=== PATIENT | female | born 1995 | race Hispanic/Latino ===

== ENCOUNTER 2024-10-03 18:37 | Emergency (ER) | payer SELFPAY ==
[2024-10-03] MEDS ORDERED: NA CHLORIDE 0.9% 2,000 ML ONE (19:19)
[2024-10-03] MEDS ORDERED: METOCLOPRAMIDE 10 MG/2mL INJ ONE (19:19)
[2024-10-03] MEDS ORDERED: DIPHENHYDRAMINE 50 MG/ML VIAL ONE (19:19)
[2024-10-03 19:45] LABS: Absolute Eosinophils 0.2 K/uL (0-0.5); Absolute Lymphocytes (CBC) 1.9 K/uL (0.7-4.9); Absolute Monocytes 0.4 K/uL (0.1-1.3); Absolute Neutrophil 5.7 K/uL (1.8-8.0); Basophils % 0.4 % (0-1.3); Eosinophils % 2.2 % (0-4.4); Hematocrit 37.7 % (36.0-45.0); Hemoglobin 12.6 g/dL (12.0-15.0); Lymphocytes % 23.5 % (15.3-44.8); MCH 29.3 pg (27.0-35.0); MCHC 33.3 g/dL (32.0-36.0); MCV 87.9 fL (80-100); MPV 8.5 fL (7.6-11.3); Monocytes % 4.5 % (3.3-12.3); Neutrophils % 69.4 % (41.7-73.7); Platelets 217 thou/uL (152-406); RBC Red Blood Cell Count 4.28 M/uL (3.86-4.86); Red Cell Distribution Width 13.6 % (12.1-15.2)
[2024-10-03 20:02] LABS: ALT/SGPT 30 U/L (13-56); Albumin 3.2 g/dL (3.4-5.0); Albumin/Globulin Ratio 0.8 (1.1-1.8); Alkaline Phosphatase 60 U/L (45-117); Anion Gap 9.8 mEq/L (5.0-15.0); BUN Blood Urea Nitrogen 12 mg/dL (7-18); Bicarbonate 24 mEq/L (21-32); Bilirubin Total 0.3 mg/dL (0.2-1.0); Globulin 3.9 g/dL (2.3-3.5); Glomerular Filtration Rate 130 ml/min (=/>90); Glucose Level 87 mg/dL (74-106); Lipase 45 U/L (13-75); Potassium 3.8 mEq/L (3.5-5.1); Protein, Total 7.1 g/dL (6.4-8.2); Sodium Level 139 mEq/L (136-145)
[2024-10-03 20:03] LABS: AST/SGOT < 10 U/L (15-37)
[2024-10-03 20:53] LABS: Specific Gravity 1.028 (1.005-1.030); Sqamous Epithelial <5 /HPF (None Seen); Urine Bacteria <20 /HPF (<20); Urine Bilirubin NEGATIVE (Negative); Urine Blood Negative (Negative); Urine Clarity Turbid (Clear); Urine Color Light-Yellow (Yellow); Urine Culture Reflex Order NOT NEEDED; Urine Glucose NEGATIVE (Negative); Urine Ketones 1+ (Negative); Urine Microscopic Reflex YN ORDER UMIC; Urine Mucus Slight /HPF (None Seen); Urine Nitrite NEGATIVE (Negative); Urine Protein NEGATIVE (Negative); Urine RBC <5 /HPF (None Seen); Urine Urobilinogen Normal (Normal); Urine WBC <5 /HPF (<5); Urine pH 5.5 (5.0-7.0)
[2024-10-03 21:29] LABS: Specific Gravity 1.028 (1.005-1.030)
--- NOTE | 2024-10-03 21:45 | ER ---
Nurse's Notes [facility] Name: Silvia Peterson Age: 29 yrs Sex: Female : 1995 Arrival Date: 10/03/2024 Time: 18:37 Bed 7 Private MD: Diagnosis: Nausea with vomiting, unspecified;First trimester Presentation: 10/03 18:52 Chief complaint: Patient states: HEADACHE, NAUSEA, DIZZINESS, VOMITING SINCE YESTERDAY. db TAKING MONJARO X 2 WEEKS, INCREASED DOSE AND LAST TOOK FRIDAY. Coronavirus screen: Client denies travel out of the [place] in the last 14 days. At this time, the client does not indicate any symptoms associated with coronavirus-19. Ebola Screen: Patient negative for fever greater than or equal to 101.5 degrees Fahrenheit, and additional compatible Ebola Virus Disease symptoms Patient denies exposure to infectious person. Patient denies travel to an Ebola-affected area in the 21 days before illness onset. No symptoms or risks identified at this time. Initial Sepsis Screen: Does the patient meet any 2 criteria? No. Patient's initial sepsis screen is negative. Does the patient have a suspected source of infection? No. Patient's initial sepsis screen is negative. Risk Assessment: Do you want to hurt yourself or someone else? Patient reports no desire to harm self or others. Onset of symptoms was October 03, 2024. 18:52 Method Of Arrival: Ambulatory db 18:52 Acuity: ANALIA 3 db Triage Assessment: 18:55 Headache History: Denies prior headaches. General: Appears in no apparent distress. db uncomfortable, Behavior is calm, cooperative. Pain: Complains of pain in head. Pain: Complains of pain in head and abdomen Pain currently is 8 out of 10 on a pain scale. Pain began 2-3 days ago. Also complains of nausea. Neuro: Level of Consciousness is awake, alert, obeys commands, Oriented to person, place, time, situation. Neuro: Reports dizziness, headache. Respiratory: Airway is patent Respiratory effort is even, unlabored, Respiratory pattern is regular, symmetrical. GI: Reports diarrhea, nausea, vomiting. Historical: - Allergies: 18:54 No Known Allergies; db - Home Meds: 18:54 None [Active]; db - PMHx: 18:54 Asthma; db - PSHx: 18:54 section; db 18:55 GASTRIC BYPASS; db - Immunization history:: Adult Immunizations unknown. - Infectious Disease History:: Denies. - Social history:: Smoking status: Patient denies any tobacco usage or history of. Screenin:15 [facility] ED Fall Risk Assessment (Adult) History of falling in the last 3 months, br2 including since admission No falls in past 3 months (0 pts) Confusion or Disorientation No (0 pts) Intoxicated or Sedated No (0 pts) Impaired Gait No (0 pts) Mobility Assist Device Used No (0 pt) Altered Elimination No (0 pt) Score/Fall Risk Level 0 - 2 = Low Risk Oriented to surroundings. Abuse screen: Denies threats or abuse. Denies injuries from another. Nutritional screening: No deficits noted. Tuberculosis screening: No symptoms or risk factors identified. Assessment: 19:15 Reassessment: Patient and/or family updated on plan of care and expected duration. Pain br2 level reassessed. Patient is alert, oriented x 3, equal unlabored respirations, skin warm/dry/pink. General: Appears uncomfortable, Behavior is calm, cooperative. Pain: Complains of pain in epigastric area Pain currently is 7 out of 10 on a pain scale. GI: Abdomen is round Reports upper abdominal pain, nausea, vomiting, since YESTERDAYMORNING. 20:48 Reassessment: Patient and/or family updated on plan of care and expected duration. Pain br2 level reassessed. Patient is alert, oriented x 3, equal unlabored respirations, skin warm/dry/pink. Patient states feeling better. Patient states symptoms have improved. 21:30 Reassessment: Patient and/or family updated on plan of care and expected duration. Pain br2 level reassessed. Patient is alert, oriented x 3, equal unlabored respirations, skin warm/dry/pink. Patient states feeling better. Patient states symptoms have improved. Vital Signs: 18:52 BP 141 / 92; Pulse 102; Resp 18; Temp 98.6; Pulse Ox 100% ; Weight 111.58 kg; Height 5 db ft. 4 in. ; 20:15 BP 133 / 86; Pulse 75; Resp 18 S; Pulse Ox 100% on R/A; br2 20:47 BP 131 / 76; Pulse 69; Resp 18; Pulse Ox 100% ; Pain 0/10; br2 18:52 Body Mass Index 42.23 (111.58 kg, 162.56 cm) db 20:47 Pain Scale: Adult br2 ED Course: 18:40 Patient arrived in ED. im 18:54 Triage completed. db 18:56 Andrey Soto MD is Attending Physician. rt 18:57 Arm band placed on right wrist. db 19:11 Georgina Haji, RN is Primary Nurse. br2 19:15 Patient has correct armband on for positive identification. Placed in gown. Bed in low br2 position. Call light in reach. Side rails up X 1. Provided Education on: PLAN OF CARE. 19:15 Inserted saline lock: 20 gauge in right antecubital area, using aseptic technique. br2 Blood collected. Flushed with 10 mL NS. 19:43 CBC with Diff Sent. br2 19:43 CMP Sent. br2 19:43 Lipase Sent. br2 22:01 IV discontinued, intact, bleeding controlled, No redness/swelling at site. Pressure br2 dressing applied. Administered Medications: 19:42 Drug: NS 0.9% IV 1000 ml IV at 1 bolus Per protocol; to be given as a bolus over 60 br2 minutes Route: IV; Rate: 1 bolus; Site: right antecubital; 20:46 Follow up: Response: No adverse reaction; IV Status: Completed infusion; IV Intake: br2 1000ml 19:43 Drug: metoCLOPramide IVP 10 mg IVP once; over 1 to 2 minutes Route: IVP; Site: right br2 antecubital; 20:46 Follow up: Response: No adverse reaction br2 19:43 Drug: diphenhydrAMINE IVP 25 mg IVP once Route: IVP; Site: right antecubital; br2 20:46 Follow up: Response: No adverse reaction br2 20:46 Drug: NS 0.9% IV 1000 ml IV at 1 bolus Per protocol; to be given as a bolus over 60 br2 minutes Route: IV; Rate: 1 bolus; Site: right antecubital; 21:45 Follow up: Response: No adverse reaction; IV Status: Completed infusion; IV Intake: br2 1000ml Medication: 19:15 VIS not applicable for this client. br2 Intake: 20:46 IV: 1000ml; Total: 1000ml. br2 21:45 IV: 1000ml; Total: 2000ml. br2 Outcome: 21:44 Discharge ordered by . rt 22:01 Discharged to home ambulatory, br2 22:01 Condition: good 22:01 Discharge instructions given to patient, Instructed on discharge instructions, follow up and referral plans. Demonstrated understanding of instructions, follow-up care, medications, Prescriptions given X 1, 22:02 Patient left the ED. br2 Signatures: Paulette Victor RN RN db Andrey Soto MD MD rt Feli Strange Belinda, RN RN br2 Corrections: (The following items were deleted from the chart) 20:48 20:47 BP 131 / 76; Pulse 69bpm; Resp 18bpm; Pulse Ox 100%; br2 br2
--- NOTE | 2024-10-03 21:45 | EDPHYS ---
Physician Documentation [facility] Name: Silvia Peterson Age: 29 yrs Sex: Female : 1995 Arrival Date: 10/03/2024 Time: 18:37 Bed 7 Private MD: ED Physician Andrey Soto HPI: 10/03 19:22 This 29 yrs old Female presents to ER via Ambulatory with complaints of Headache, rt Nausea, Dizziness, Vomiting. 19:22 Patient presents to the ED with 1 day of nausea, vomiting, diarrhea after having her rt dose of Mounjaro double. Denies abdominal pain. Denies other reports mild headache but denies other acute complaints, symptoms are moderate in severity, no other aggravating or alleviating factors.. Historical: - Allergies: 18:54 No Known Allergies; db - Home Meds: 18:54 None [Active]; db - PMHx: 18:54 Asthma; db - PSHx: 18:54 section; db 18:55 GASTRIC BYPASS; db - Immunization history:: Adult Immunizations unknown. - Infectious Disease History:: Denies. - Social history:: Smoking status: Patient denies any tobacco usage or history of. ROS: 19:22 Constitutional: Negative for fever, chills, and weight loss, Cardiovascular: Negative rt for chest pain, palpitations, and edema, Respiratory: Negative for shortness of breath, cough, wheezing, and pleuritic chest pain, MS/Extremity: Negative for injury and deformity, Skin: Negative for injury, rash, and discoloration, 19:22 Abdomen/GI: Positive for nausea, vomiting, and diarrhea, 19:22 Neuro: Positive for headache, Negative for loss of consciousness, Exam: 19:22 Constitutional: This is a well developed, well nourished patient who is awake, alert, rt and in no acute distress. Head/Face: Normocephalic, atraumatic. Chest/axilla: Normal chest wall appearance and motion. Nontender with no deformity. No lesions are appreciated. Cardiovascular: Regular rate and rhythm with a normal S1 and S2. No gallops, murmurs, or rubs. Normal PMI, no JVD. No pulse deficits. Respiratory: Lungs have equal breath sounds bilaterally, clear to auscultation and percussion. No rales, rhonchi or wheezes noted. No increased work of breathing, no retractions or nasal flaring. Abdomen/GI: Soft, non-tender, with normal bowel sounds. No distension or tympany. No guarding or rebound. No evidence of tenderness throughout. Skin: Warm, dry with normal turgor. Normal color with no rashes, no lesions, and no evidence of cellulitis. MS/ Extremity: Pulses equal, no cyanosis. Neurovascular intact. Full, normal range of motion. Neuro: Awake and alert, GCS 15, oriented to person, place, time, and situation. Cranial nerves II-XII grossly intact. Motor strength 5/5 in all extremities. Sensory grossly intact. Cerebellar exam normal. Normal gait. Vital Signs: 18:52 BP 141 / 92; Pulse 102; Resp 18; Temp 98.6; Pulse Ox 100% ; Weight 111.58 kg; Height 5 db ft. 4 in. ; 20:15 BP 133 / 86; Pulse 75; Resp 18 S; Pulse Ox 100% on R/A; br2 20:47 BP 131 / 76; Pulse 69; Resp 18; Pulse Ox 100% ; Pain 0/10; br2 18:52 Body Mass Index 42.23 (111.58 kg, 162.56 cm) db 20:47 Pain Scale: Adult br2 MDM: 19:02 Medical Screening Exam initiated rt 22:55 Differential diagnosis: Pancreatitis, electrolyte disturbance, TESSA, , rt hyperemesis gravidarum. Data reviewed: vital signs, nurses notes, lab test result(s). I considered the following discharge prescriptions or medication management in the emergency department Medications were administered in the Emergency Department. See MAR. Test considered but Not performed: CT: Benign abdominal examination, positive test, do not believe that risks of radiation are indicated given stable labs, low suspicion for acute surgical pathology such as appendicitis, cholecystitis, bowel obstruction. Care significantly affected by the following chronic conditions: Asthma. Counseling: I had a detailed discussion with the patient and/or guardian regarding the historical points, exam findings, and any diagnostic results supporting the discharge/admit diagnosis, lab results, the need for outpatient follow up, to return to the emergency department if symptoms worsen or persist or if there are any questions or concerns that arise at home. Response to treatment: the patient's symptoms have markedly improved after treatment. 10/03 19:03 Order name: CBC with Diff; Complete Time: 21:27 rt 10/03 19:03 Order name: CMP; Complete Time: 21:27 rt 10/03 19:03 Order name: Lipase; Complete Time: 21:27 rt 10/03 19:03 Order name: Test, Urine; Complete Time: 21:33 rt 10/03 19:03 Order name: Urinalysis w/ reflexes; Complete Time: 21:27 rt 10/03 19:03 Order name: IV Saline Lock; Complete Time: :43 rt 10/03 19:03 Order name: Labs collected and sent; Complete Time: 19:43 rt Administered Medications: 19:42 Drug: NS 0.9% IV 1000 ml IV at 1 bolus Per protocol; to be given as a bolus over 60 br2 minutes Route: IV; Rate: 1 bolus; Site: right antecubital; 20:46 Follow up: Response: No adverse reaction; IV Status: Completed infusion; IV Intake: br2 1000ml 19:43 Drug: metoCLOPramide IVP 10 mg IVP once; over 1 to 2 minutes Route: IVP; Site: right br2 antecubital; 20:46 Follow up: Response: No adverse reaction br2 19:43 Drug: diphenhydrAMINE IVP 25 mg IVP once Route: IVP; Site: right antecubital; br2 20:46 Follow up: Response: No adverse reaction br2 20:46 Drug: NS 0.9% IV 1000 ml IV at 1 bolus Per protocol; to be given as a bolus over 60 br2 minutes Route: IV; Rate: 1 bolus; Site: right antecubital; 21:45 Follow up: Response: No adverse reaction; IV Status: Completed infusion; IV Intake: br2 1000ml Disposition Summary: 10/03/24 21:44 Discharge Ordered Notes: Location: Home rt Problem: new rt Symptoms: have improved rt Condition: Stable rt Diagnosis - Nausea with vomiting, unspecified rt - First trimester rt Followup: rt - With: Private Physician - When: 2 - 3 days - Reason: Discharge Instructions: - Discharge Summary Sheet rt - Nausea and Vomiting, Adult rt - First Trimester of rt Forms: - Medication Reconciliation Form rt - Antibiotic Education rt - Prescription Opioid Use rt - Patient Portal Instructions rt - Leadership Thank You Letter rt Prescriptions: - Reglan 10 mg Oral tablet - take 1 tablet ORAL route every 6 hours as needed for nausea; 20 tablet; rt Refills: 0, Product Selection Permitted Signatures: Dispatcher [employer] EDMS Paulette Victor RN RN db Andrey Soto MD MD rt Georgina Haji RN RN br2 Corrections: (The following items were deleted from the chart) 19:03 19:03 CBC+H.LAB.BRZ ordered. EDMS EDMS 19:03 19:03 COMPREHENSIVE METABOLIC PANEL+C.LAB.BRZ ordered. EDMS EDMS 19:03 19:03 LIPASE+C.LAB.BRZ ordered. EDMS EDMS 19:03 19:03 Test, Urine+UC.LAB.BRZ ordered. EDMS EDMS 19:03 19:03 Urinalysis+U.LAB.BRZ ordered. EDMS EDMS
[2024-10-03 22:37] VITALS: TEMP 98.6; O2SAT 100
[2024-10-03 22:49] VITALS: BP 131/76
== END 2024-10-03 22:02 | disposition home or self-care (01) ==
LOC: ER 18:37
DX: Z33.1 Pregnant state, incidental (principal); Z98.84 Bariatric surgery status
CPT/HCPCS: 36415; 80053; 81001; 81025; 83690; 85025; 96361; 96374; 96375; 99284; J1200; J2765; J7030

== ENCOUNTER 2025-04-18 19:46 | Emergency (ER) | payer OTHER ==
--- OUTSIDE RECORDS SUMMARY | 2025-04-18 19:51 | XMS REPORT | Continuity of Care Document ---
Author Name Unknown Address [address] [facility] [address] [place] [address] [facility] [place] Address [address] [facility] [place] [address] Care Team Providers Care Slotter Operator Helper Name Role Phone Jyoti Haddad Primary Care Physician DIONNE SCOTT Attending Clinician Unavailable NIKIA SMITH Attending Clinician Unavail able Nikia Pennington Attending Clinician + Zuleyka Donovan Attending Clinician + [phone] JOSE ARMANDO ROWE Attending Clinician Unavailable JOSE ARMANDO ROWE Attending Clinician Unavailable Doctor Unassigned, [place] Attending Clinician U navailable Risk, Ikq-Bfdfe-No/High Attending Clinician Unav Cayden Sands MD Attending Clinician +[phone] Cortes Gaines MD Attending Clinician + [phone] MARC WHITEHEAD Attending Clinician Unavailab BRITTANIE Rowland Attending Clinician Unavailable BRITTANIE DE SOUZA Attending Clinician Unavailable Ultrasound, Ang-Mfm Attending Clinician Unavailderek Gould MD, Shwetha Fraga Attending Clinician + FREDRICK SEPULVEDA Attending Clinician Unavailable FREDRICK SEPULVEDA Attending Clinician Unavailable FREDRICK SEPULVEDA Attending Clinician Unavailable 1, [facility] Attending Clinician UnavailFredrick Rm MD Attending Clinician [phone] CROTES GAINES Admitting Clinician Cortes Rodarte MD Admitting Clinician +- [phone] Payers Payer Name Policy Type Policy Number Effective Date Expirati on Date Source BETSY GARCIA [id number] 2024 00:00:00 Problems Condition Name Condition Details Condition Category Status Onset Date Resolution Date Last Treatment Date Treating Clinician Comments Source Supervisio n of high-risk Supervisio n of high-risk Disease Active 10-06 00:00: 00 [facility] History of bariatric surgery History of bariatric surgery Disease Active 10-06 00:00: 00 [facility] Nausea and vomiting in Nausea and vomiting in Disease Active 10-06 00:00: 00 [facility] Obesity in Obesity in Disease Active 10-06 00:00: 00 [facility] Allergies, Adverse Reactions, Alerts Allergy Name Allergy Type Status Severity Reaction(s) Onset Date Inactive Date Treating Clinician Comments Source NO KNOWN ALLERGIE S Drug Class Active [facility] Social History Social Habit Start Date Stop Date Quantity Comments Source ASSERTION 2024-09-02 00:00:00 [facility] Alcoholic beverage intake 2025-04-14 00:00:00 2025-04-14 00:00:00 Ex-drinker (finding) [facility] History of Social function 2024-12-29 00:00:00 2024-12-29 00:00:00 [facility] Tobacco use and exposure 2024-10-06 00:00:00 2024-10-06 00:00:00 Smokeless tobacco non-user [facility] Sex assigned at 1995 00:00:00 1995 00:00:00 [facility] Smoking Status Start Date Stop Date Source Never smoked tobacco [facility] Medications Ordered Medication Name Filled Medication Name Start Date Stop Date Current Medication? Ordering Clinician Indication Dosage Frequency Signature (SIG) Comments Components Source Blood-Gluco se Meter (FREESTYLE LITE METER) Kit 7-29 00:00: 00 Yes [id number] Check blood glucose 4x daily [facility] lancets (FREESTYLE LANCETS) 28 gauge Misc 02-22 00:00: 00 Yes [id number] Check glucose 4x daily [facility] blood sugar diagnostic (FREESTYLE LITE STRIPS) strip 02-22 00:00: 00 Yes [id number] Check blood glucose 4x daily [facility] acetaminoph en (TYLENOL) tablet 650 mg acetaminoph en (TYLENOL) tablet 650 mg 02-19 17:00: 00 02-19 16:22 :00 Yes 650mg 650 mg, Oral, ONCE, 1 dose, On 02/19/25 at 1200, Routine [facility] doxylamine- pyridoxine, vit B6, (DICLEGIS) 10-10 mg per tablet - 00:00: 00 Yes [id number] 2{tbl} Take 2 tablets by mouth at bedtime. [facility] proMETHazin e 25 mg tablet 3-12 00:00: 00 Yes [id number] 25mg Take 1 tablet by mouth every 6 (six) hours as needed for Nausea and Vomiting (N/V). [facility] Macrobid 100 mg capsule 5-30 00:00: 00 Yes 1mg [facility] ibuprofen 800 mg tablet 2-27 00:00: 00 Yes 1mg [facility] TAKE ONE (1) TABLET(S) BY MOUTH TWICE A DAY. 04-25 00:00: 00 Yes [facility] Immunizations Ordered Immunization Name Filled Immunization Name Date Status Comments Source TDAP 2025-03-17 00:00:00 Completed [facility] Vital Signs Vital Name Observation Time Observation Value Comments S shelby Systolic blood pressure 2025-04-14 16:16:00 118 mm[Hg] [facility] Diastolic blood pressure 2025-04-14 16:16:00 72 mm[Hg] [facility] Heart rate 2025-04-14 16:16:00 78 /min [facility] Body temperature 2025-04-14 16:16:00 36.44 Jen [facility] Respiratory rate 2025-04-14 16:16:00 20 /min [facility] Body height 2025-04-14 16:16:00 165.1 cm [facility] Body weight 2025-04-14 16:16:00 126.355 kg [facility] BMI 2025-04-14 16:16:00 46.36 kg/m2 [facility] Systolic blood pressure 2025-03-31 15:25:00 115 mm[Hg] [facility] Diastolic blood pressure 2025-03-31 15:25:00 71 mm[Hg] [facility] Heart rate 2025-03-31 15:25:00 76 /min [facility] Body temperature 2025-03-31 15:25:00 36.61 Jen [facility] Respiratory rate 2025-03-31 15:25:00 20 /min [facility] Body height 2025-03-31 15:25:00 165.1 cm [facility] Body weight 2025-03-31 15:25:00 125.76 kg [facility] BMI 2025-03-31 15:25:00 46.14 kg/m2 [facility] Systolic blood pressure 2025-03-17 15:20:00 117 mm[Hg] [facility] Diastolic blood pressure 2025-03-17 15:20:00 74 mm[Hg] [facility] Heart rate 2025-03-17 15:20:00 80 /min [facility] Body temperature 2025-03-17 15:20:00 35.89 Jen [facility] Respiratory rate 2025-03-17 15:20:00 20 /min [facility] Body height 2025-03-17 15:20:00 165.1 cm [facility] Body weight 2025-03-17 15:20:00 124.03 kg [facility] BMI 2025-03-17 15:20:00 45.50 kg/m2 [facility] Systolic blood pressure 2025-03-03 13:58:00 129 mm[Hg] [facility] Diastolic blood pressure 2025-03-03 13:58:00 73 mm[Hg] [facility] Heart rate 2025-03-03 13:58:00 71 /min [facility] Body temperature 2025-03-03 13:58:00 35.94 Jen [facility] Respiratory rate 2025-03-03 13:58:00 18 /min [facility] Body height 2025-03-03 13:58:00 165.1 cm [facility] Body weight 2025-03-03 13:58:00 123.651 kg [facility] BMI 2025-03-03 13:58:00 45.36 kg/m2 [facility] Systolic blood pressure 2025-02-22 15:18:00 115 mm[Hg] [facility] Diastolic blood pressure 2025-02-22 15:18:00 70 mm[Hg] [facility] Heart rate 2025-02-22 15:18:00 85 /min [facility] Body temperature 2025-02-22 15:18:00 36.28 Jen [facility] Respiratory rate 2025-02-22 15:18:00 20 /min [facility] Body height 2025-02-22 15:18:00 165.1 cm [facility] Body weight 2025-02-22 15:18:00 122.188 kg [facility] BMI 2025-02-22 15:18:00 44.83 kg/m2 [facility] Systolic blood pressure 2025-02-19 17:21:00 123 mm[Hg] [facility] Diastolic blood pressure 2025-02-19 17:21:00 71 mm[Hg] [facility] Heart rate 2025-02-19 17:21:00 90 /min [facility] Oxygen saturation in Arterial blood by Pulse oximetry 2025-02-19 17:21:00 100 /min [facility] Respiratory rate 2025-02-19 15:31:00 19 /min [facility] Body temperature 2025-02-19 15:11:11 36.67 Jen [facility] Body height 2025-02-19 15:08:00 165.1 cm [facility] Systolic blood pressure 2025-02-17 18:55:00 107 mm[Hg] [facility] Diastolic blood pressure 2025-02-17 18:55:00 72 mm[Hg] [facility] Heart rate 2025-02-17 18:55:00 88 /min [facility] Body temperature 2025-02-17 18:55:00 36.67 Jen [facility] Respiratory rate 2025-02-17 18:55:00 20 /min [facility] Body height 2025-02-17 18:55:00 165.1 cm [facility] Body weight 2025-02-17 18:55:00 122.199 kg [facility] BMI 2025-02-17 18:55:00 44.83 kg/m2 [facility] Oxygen saturation in Arterial blood by Pulse oximetry 2025-02-17 18:55:00 97 /min [facility] Systolic blood pressure 2025-01-25 15:20:00 118 mm[Hg] [facility] Diastolic blood pressure 2025-01-25 15:20:00 68 mm[Hg] [facility] Heart rate 2025-01-25 15:20:00 75 /min [facility] Body temperature 2025-01-25 15:20:00 36.11 Jen [facility] Respiratory rate 2025-01-25 15:20:00 18 /min [facility] Body height 2025-01-25 15:20:00 165.1 cm [facility] Body weight 2025-01-25 15:20:00 119.324 kg [facility] BMI 2025-01-25 15:20:00 43.78 kg/m2 [facility] Systolic blood pressure 2024-12-29 20:02:00 117 mm[Hg] [facility] Diastolic blood pressure 2024-12-29 20:02:00 73 mm[Hg] [facility] Heart rate 2024-12-29 20:02:00 89 /min [facility] Body temperature 2024-12-29 20:02:00 36.61 Jen [facility] Respiratory rate 2024-12-29 20:02:00 18 /min [facility] Body height 2024-12-29 20:02:00 165.1 cm [facility] Body weight 2024-12-29 20:02:00 116.83 kg [facility] BMI 2024-12-29 20:02:00 42.86 kg/m2 [facility] Systolic blood pressure 2024-11-30 15:40:00 128 mm[Hg] [facility] Diastolic blood pressure 2024-11-30 15:40:00 77 mm[Hg] [facility] Heart rate 2024-11-30 15:40:00 71 /min [facility] Body temperature 2024-11-30 15:40:00 35.83 Jen [facility] Respiratory rate 2024-11-30 15:40:00 18 /min [facility] Body height 2024-11-30 15:40:00 165.1 cm [facility] Body weight 2024-11-30 15:40:00 112.401 kg [facility] BMI 2024-11-30 15:40:00 41.24 kg/m2 [facility] Systolic blood pressure 2024-11-03 20:07:00 139 mm[Hg] [facility] Diastolic blood pressure 2024-11-03 20:07:00 88 mm[Hg] [facility] Heart rate 2024-11-03 20:07:00 75 /min [facility] Body temperature 2024-11-03 20:07:00 36 Jen [facility] Respiratory rate 2024-11-03 20:07:00 18 /min [facility] Body height 2024-11-03 20:07:00 165.1 cm [facility] Body weight 2024-11-03 20:07:00 111.948 kg [facility] BMI 2024-11-03 20:07:00 41.07 kg/m2 [facility] BP Systolic 2025-01-04 10:58:00 108 mm[Hg] Step hen [facility] BP Diastolic 2025-01-04 10:58:00 74 mm[Hg] Alfredo phen [facility] Weight Measured 2025-01-04 10:58:00 256.80 pounds [facility] Height Measured 2025-01-04 10:58:00 64.17 inches [facility] Body Temperature 2025-01-04 10:58:00 97.70 degrees [facility] Heart Rate 2025-01-04 10:58:00 93.00 /min Herminia en [facility] Respiratory Rate 2025-01-04 10:58:00 Cu[facility]htemoc [facility] BP Systolic 2024-01-08 17:29:00 112 mm[Hg] Step hen [facility] BP Diastolic 2024-01-08 17:29:00 75 mm[Hg] Alfredo phen [facility] Weight Measured 2024-01-08 17:29:00 234.08 pounds [facility] Height Measured 2024-01-08 17:29:00 64.00 inches [facility] Body Temperature 2024-01-08 17:29:00 97.50 degrees [facility] Heart Rate 2024-01-08 17:29:00 71.00 /min Herminia en [facility] Respiratory Rate 2024-01-08 17:29:00 18.00 /min [facility] BP Systolic 2023-12-29 08:01:00 104 mm[Hg] Step hen [facility] BP Diastolic 2023-12-29 08:01:00 65 mm[Hg] Alfredo phen [facility] Sc[facility]ot Weight Measured 2023-12-29 08:01:00 233.60 pounds [facility] Height Measured 2023-12-29 08:01:00 64.00 inches [facility] Body Temperature 2023-12-29 08:01:00 97.50 degrees [facility] Heart Rate 2023-12-29 08:01:00 60.00 /min Herminia en [facility] Respiratory Rate 2023-12-29 08:01:00 18.00 /min [facility] Height Measured 2023-12-25 14:57:00 64.00 inches [facility] Body Temperature 2023-12-25 14:57:00 97.50 degrees [facility] Heart Rate 2023-12-25 14:57:00 79.00 /min Herminia en [facility] Respiratory Rate 2023-12-25 14:57:00 18.00 /min [facility] BP Systolic 2023-12-25 14:57:00 112 mm[Hg] Step hen [facility] BP Diastolic 2023-12-25 14:57:00 71 mm[Hg] Alfredo phen [facility] Weight Measured 2023-12-25 14:57:00 230.40 pounds [facility]emoc [facility] BP Systolic 2023-09-23 16:13:00 122 mm[Hg] Step hen [facility] BP Diastolic 2023-09-23 16:13:00 80 mm[Hg] Alfredo phen [facility] Weight Measured 2023-09-23 16:13:00 245.00 pounds [facility] Height Measured 2023-09-23 16:13:00 64.00 inches [facility]emoc [facility] Body Temperature 2023-09-23 16:13:00 98.20 degrees [facility] Heart Rate 2023-09-23 16:13:00 73.00 /min Herminia en [facility] Respiratory Rate 2023-09-23 16:13:00 Cu[facility]htemoc F Scout BP Systolic 2021-10-15 14:13:00 151 mm[Hg] Step hen F Scout BP Diastolic 2021-10-15 14:13:00 98 mm[Hg] Alfredo phen [facility] Scout Weight Measured 2021-10-15 14:13:00 381.80 pounds [facility]emoc [facility] Height Measured 2021-10-15 14:13:00 64.00 inches [facility]oc [facility] Body Temperature 2021-10-15 14:13:00 98.30 degrees [facility] Heart Rate 2021-10-15 14:13:00 99.00 /min Herminia en [facility] Respiratory Rate 2021-10-15 14:13:00 18.00 /min [facility] Procedures Procedure Date / Time Performed Performing Clinician Source SECOND AND THIRD TRIMESTER ULTRASOUND 2025-03-31 14:46:00 Zuleyka Singh [facility] TDAP VACCINE, >11 YRS, IM 2025-03-17 15:46:20 Nikia Smith [facility] DIABETES TESTING REPORTS 2025-03-04 13:13:37 Doc tor Unassigned, [place] [facility] DME/SUPPLY JUSTIFICATION 2025-03-01 17:54:26 Doc tor Unassigned, [place] [facility] ADC CLC OR LCC ONLY - WET PREP 2025-02-19 16:12:00 Cortes Gaines [facility] SECOND AND THIRD TRIMESTER ULTRASOUND 2025-02-17 16:06:00 Nikia Smith [facility] SECOND AND THIRD TRIMESTER ULTRASOUND 2025-01-06 15:09:00 Nikia Smith [facility] ALPHA FETOPROTEIN-MATERNAL SER 2024-12-29 20:40:00 Nikia Smith [facility] POCT URINALYSIS 2024-12-29 00:00:00 Nikia Smith [facility] NIPT - NON-INVASIVE TEST RESULTS 2024-12-07 13:38:46 Doctor Unassigned, [place] [facility] NIPT - NON-INVASIVE TEST RESULTS 2024-12-06 18:51:31 Doctor Unassigned, [place] [facility] POCT URINALYSIS 2024-11-30 15:44:00 Nikia Smith [facility] FIRST TRIMESTER ULTRASOUND 2024-11-16 18:09:00 Nikia Smith [facility] Encounters Start Date/Time End Date/Time Encounter Type Admission Type Attending [facility] Care Facility Care Department Encounter ID Source 2025-02-19 12:39:01 Outpatient P [facility] ROSANNA [id number] [facility] 2025-04-14 11:15:00 2025-04-14 11:55:31 Routine Visit R Nikia Smith [facility] WAREHOUSING TECHNICIAN [facility] .2.840.114 350.1.13.10 4.2.7.2.686 [id number] [facility] 2025-04-05 00:00:00 2025-04-05 16:55:15 Abstract Zuleyka Singh [facility] WAREHOUSING TECHNICIAN [facility] 1.2.840.114 350.1.13.10 4.2.7.2.686 [id number] [facility] 2025-03-31 10:45:00 2025-03-31 11:06:30 Routine Visit R NIKIA SMITH [facility] WAREHOUSING TECHNICIAN [facility] 1.2.840.114 350.1.13.10 4.2.7.2.686 [id number] [facility] 2025-03-31 09:45:00 2025-03-31 09:59:30 Regional Ehs Manager Visit P JAE, JOSE ARMANDO BEAVERS [facility] WAREHOUSING TECHNICIAN [facility] & CHILD [facility] 1.2.840.114 350.1.13.10 4.2.7.2.686 [id number] [facility] 2025-02-17 00:00:00 2025-03-26 18:31:42 Patient Secure Msg Doctor Unassigned, [place] Doctor Unassigned, [place] [facility] WAREHOUSING TECHNICIAN [facility] 1.2.840.114 350.1.13.10 4.2.7.2.686 [id number] [facility] 2025-03-17 09:30:00 2025-03-17 11:15:29 Routine Visit R Nikia Smith [facility] WAREHOUSING TECHNICIAN [facility] & CHILD [facility] 1.2.840.114 350.1.13.10 4.2.7.2.686 [id number] [facility] 2025-03-04 00:00:00 2025-03-05 02:05:34 Orders Only Doctor Unassigned, [place] Doctor Unassigned, [place] [facility] 1.2.840.114 350.1.13.10 4.2.7.2.686 [id number] [facility] 2025-03-03 08:30:00 2025-03-03 09:32:49 Office Visit R Risk, Ang-Rmchp-N p/High Zuleyka Singh, Ang-Rmchp-N p/High [facility] WAREHOUSING TECHNICIAN [facility] 1.20.114 350.1.13.10 4.2.7.2.686 [id number] [facility] 2025-03-01 00:00:00 2025-03-02 02:05:03 Orders Only Doctor Unassigned, [place] Doctor Unassigned, [place] [facility] 1.2.114 350.1.13.10 4.2.7.2.686 [id number] [facility] 2025-02-22 10:15:00 2025-02-22 11:36:56 Routine Visit R Nikia Smith [facility] WAREHOUSING TECHNICIAN [facility] 1.0.114 350.1.13.10 4.2.7.2.686 [id number] [facility] 2025-02-19 10:05:00 2025-02-19 12:38:00 Emergency P Cayden Bell Marisol [facility] 1..114 350.1.13.10 4.2.7.2.686 [id number] [facility] 2025-02-17 14:00:00 2025-02-17 15:50:38 Office Visit R MARC WHITEHEAD [facility] WAREHOUSING TECHNICIAN [facility] 1.20.114 350.1.13.10 4.2.7.2.686 [id number] [facility] 2025-02-17 00:00:00 2025-02-17 14:04:46 Abstract Nikia Smith [facility] WAREHOUSING TECHNICIAN [facility] & CHILD [facility] 1.2.840.114 350.1.13.10 4.2.7.2.686 [id number] [facility] 2025-02-17 10:30:00 2025-02-17 11:12:59 Regional Ehs Manager Visit R BRITTANIE DE SOUZA COREY [facility] WAREHOUSING TECHNICIAN [facility] & CHILD [facility] 1.2.840.114 350.1.13.10 4.2.7.2.686 [id number] [facility] 2025-02-02 00:00:00 2025-02-04 10:50:34 Telephone Nikia Smith [facility] WAREHOUSING TECHNICIAN [facility] 1.2.840.114 350.1.13.10 4.2.7.2.686 [id number] [facility] 2025-01-25 10:30:00 2025-01-25 10:49:12 Routine Visit R NIKIA SMITH [facility] WAREHOUSING TECHNICIAN [facility] 1.2.840.114 350.1.13.10 4.2.7.2.686 [id number] [facility] 2025-01-24 09:30:00 2025-01-24 09:30:00 Outpatient R NIKIA SMITH [facility] [id number] [facility] 2025-01-14 00:00:00 2025-01-14 11:46:10 Telephone Nikia Smith [facility] WAREHOUSING TECHNICIAN [facility] 1.2.840.114 350.1.13.10 4.2.7.2.686 [id number] [facility] 2025-01-06 00:00:00 2025-01-06 14:39:21 Abstract Nikia Smith [facility] WAREHOUSING TECHNICIAN [facility] & [facility]ILD [facility] 1.2.840.114 350.1.13.10 4.2.7.2.686 [id number] [facility] 2025-01-06 09:00:00 2025-01-06 10:07:14 Regional Ehs Manager Visit P Vamsi, Shwetha Prasad [facility] WAREHOUSING TECHNICIAN [facility] 1.2.840.114 350.1.13.10 4.2.7.2.686 [id number] [facility] 2025-01-04 10:57:34 2025-01-04 10:57:34 Outpatient SFA [id number] [facility] 2025-01-04 00:00:00 2025-01-04 00:00:00 Outpatient Visit [id number] [facility] 2024-12-29 15:00:00 2024-12-29 15:42:38 Routine Visit R Nikia Smith [facility] WAREHOUSING TECHNICIAN [facility] 1.2840.114 350.1.13.10 4.2.7.2.686 [id number] [facility] 2024-12-07 00:00:00 2024-12-08 02:05:06 Orders Only Doctor Unassigned, [place] Doctor Unassigned, [place] [facility] 1.2840.114 350.1.13.10 4.2.7.2.686 [id number] [facility] 2024-12-06 00:00:00 2024-12-07 02:05:14 Orders Only Doctor Unassigned, [place] Doctor Unassigned, [place] [facility] 1.2.840.114 350.1.13.10 4.2.7.2.686 [id number] [facility] 2024-11-30 10:30:00 2024-11-30 11:31:57 Outpatient R RAQUEL, NIKIA [facility] [id number] [facility] 2024-11-30 10:30:00 2024-11-30 11:31:57 Routine Visit Nikia Smith [facility] WAREHOUSING TECHNICIAN [facility] 1.2.840.114 350.1.13.10 4.2.7.2.686 [id number] [facility] 2024-11-17 00:00:00 2024-11-17 15:56:56 Abstract ElaineNikia kim Valdez [facility] WAREHOUSING TECHNICIAN [facility] & [facility] 1..840.114 350.1.13.10 4.2.7.2.686 [id number] [facility] 2024-11-16 13:00:00 2024-11-16 13:10:44 Outpatient R FREDRICK SEPULVEDA KARIN FOX, KARIN [facility] [id number] [facility] 2024-11-16 13:00:00 2024-11-16 13:10:44 Regional Ehs Manager Visit 1, [facility] Fredrick Sepulveda [facility] WAREHOUSING TECHNICIAN [facility] 1..840.114 350.1.13.10 4.2.7.2.686 [id number] [facility] 2024-11-03 15:00:00 2024-11-03 15:38:28 Outpatient R ELAINERAYNAGALINDO NIKIA [facility] [id number] [facility] 2024-11-03 15:00:00 2024-11-03 15:38:28 Routine Visit Nikia Smith [facility] WAREHOUSING TECHNICIAN [facility] 1..840.114 350.1.13.10 4.2.7.2.686 [id number] [facility] 2024-10-18 00:00:00 2024-10-18 16:16:07 Telephone Nikia Smith [facility] WAREHOUSING TECHNICIAN [facility] 1.2.840.114 350.1.13.10 4.2.7.2.686 [id number] [facility] 2024-10-06 12:30:00 2024-10-06 12:51:24 Outpatient R ELAINERAYNANIKIA MEDLEY [facility] [id number] [facility] 2024-01-08 17:24:27 2024-01-08 17:24:27 Outpatient SFA SFA [id number] [facility] Butterfield 2024-01-08 00:00:00 2024-01-08 00:00:00 Outpatient Visit SFA [id number] [facility]field 2023-12-29 08:01:36 2023-12-29 08:01:36 Outpatient SFA [id number] [facility] Butterfield 2023-12-29 00:00:00 2023-12-29 00:00:00 Outpatient Visit SFA [id number] [facility] Butterfield 2023-12-25 14:56:31 2023-12-25 14:56:31 Outpatient SFA [id number] [facility] Butterfield 2023-12-25 00:00:00 2023-12-25 00:00:00 Outpatient Visit SFA [id number] [facility] Butterfield 2023-09-24 15:15:13 2023-09-24 15:15:13 Outpatient SFA [id number] [facility] Alfaro Scout 2023-09-23 16:06:50 2023-09-23 16:06:50 Outpatient SFA [id number] [facility] Alfaro Scout 2022-04-25 15:33:30 2022-04-25 15:33:30 Outpatient SFA [id number] [facility] Alfaro Scout Results Test Description Test Time Test Comments Results Resul t Comments Source DIABETES TESTING REPORTS 8 13:13:37 Ordered by an unspecified provider. [facility] DME/SUPPLY JUSTIFICATION 5 17:54:26 Ordered by an unspecified provider. [facility] RESULTS 2024-12-07 13:38:46Ordered by an unspecified provider.[facility] - NON-INVASIVE TEST [id number] 18:51:31 [facility]dered by an unspecified provider.[facility]CIFIC [id number] 15:44:00* Test Item Value Reference Range Interpretation Comme nts POCT U SP GRAV (test code = 3255) . 1.005-1.025 POCT PH U (test code = 3254) . 5-8 POCT U LEUK EST (test code = 3263) . Negative - N egative POCT U NIT (test code = 3262) . Negative - Negati ve POCT U PROT (test code = 3259) trace Negative - Negat maddy POCT U GLU (test code = 3256) neg Negative - Negati ve POCT U KETONE (test code = 3258) . Negative - Neg ative POCT U UROBILI (test code = 3260) . 0.2-1 POCT U BILI (test code = 3261) . Negative - Negat maddy POCT U BLD (test code = 3257) . Negative - Negati ve POCT U COLOR (test code = 3266) . POCT U APPEAR (test code = 3267) . [facility]AG[facility] + HPV HIGH RISK + GC AND CHLAMYDIA [id number] 00:00:00* Test Item Value Reference Range Interpretation Comme nts SOURCE: (test code = 8001) Unspecified SLIDES: (test code = 8011) 1 LMP: (test code = 8021) NOT GIVEN SPECIMEN ADEQUACY: (test code = 90235) (NOTE) INTERPRETATION: (test code = 19452) ASCUS/EPITH. ABNORMALITY; SEE BELOW RESEARCH DAIRY FARM SUPERVISOR: (test code = 8101) MARIANNE Hercules(ASCP) IAC QC TECHNOLOGIST: (test code = 8111) MARIANNE HOUSE(ASCP) PATHOLOGIST INTERPRETATION BY: (test code = 8122) Earnestine Hutchinson M.D. LOCATION: (test code = 01636) (NOTE) CPT: (test code = 8140) (NOTE) HPV HIGH RISK INTERP (test code = 60891) POSITIVE HPV 16 (test code = 54065) NEGATIVE HPV 18 (test code = 53134) NEGATIVE HPV, HR, OTHER GENOTYPES (test code = 91282) POSITIVE GONORRHEA, NAAT, THINPREP (test code = 26651) NEGATIVE CHLAMYDIA, NAAT, THINPREP (test code = 77964) NEGATIVE PDFE (test code = PDFReport) PDF [facility] Alfaro AustinPAP TEST, THINPREP, IMAGED + HPV HIGH RISK + GC AND CHLAMYDIA A 2024-01-01 00:00:00* Test Item Value Reference Range Interpretation Comme nts SOURCE: (test code = 8001) Unspecified SLIDES: (test code = 8011) 1 LMP: (test code = 8021) NOT GIVEN SPECIMEN ADEQUACY: (test code = 11551) (NOTE) INTERPRETATION: (test code = 09723) ASCUS/EPITH. ABNORMALITY; SEE BELOW RESEARCH DAIRY FARM SUPERVISOR: (test code = 8101) MARIANNE Hercules(ASCP) IAC QC TECHNOLOGIST: (test code = 8111) MARIANNE HOUSE(ASCP) PATHOLOGIST INTERPRETATION BY: (test code = 8122) Earnestine Hutchinson M.D. LOCATION: (test code = 56346) (NOTE) CPT: (test code = 8140) (NOTE) HPV HIGH RISK INTERP (test code = 09531) POSITIVE HPV 16 (test code = 57973) NEGATIVE HPV 18 (test code = 04632) NEGATIVE HPV, HR, OTHER GENOTYPES (test code = 95148) POSITIVE GONORRHEA, NAAT, THINPREP (test code = 68908) NEGATIVE CHLAMYDIA, NAAT, THINPREP (test code = 50596) NEGATIVE PDFE (test code = PDFReport) PDF [facility] Alfaro AustinVAGINAL PATHOGENS DNA [id number] 00:00:00* Test Item Value Reference Range Interpretation Comme nts ADRI SPECIES (test code = 41935) NEGATIVE G. VAGINALIS (test code = 52936) NEGATIVE T. VAGINALIS (test code = ) NEGATIVE [facility] ButterfieldVAGINAL PATHOGENS DNA [id number] 00:00:00* Test Item Value Reference Range Interpretation Comme nts ADRI SPECIES (test code = 03431) NEGATIVE G. VAGINALIS (test code = ) NEGATIVE T. VAGINALIS (test code = ) NEGATIVE [facility] ButterfieldCULTURE, [id number] 00:00:00* Test Item Value Reference Range Interpretation Comme nts CULTURE, URINE (test code = 59924) SPECIMEN NUMBER: [id number] [facility]emoc ButterfieldCULTURE, [id number] 00:00:00* Test Item Value Reference Range Interpretation Comme nts CULTURE, URINE (test code = 18158) SPECIMEN NUMBER: [id number] [facility] ButterfieldCULTTRINITY, [id number] 00:00:00* Test Item Value Reference Range Interpretation Comme nts CULTURE, URINE (test code = 57986) SPECIMEN NUMBER: [id number] [facility]oc ButterfieldDHEA [id number] 12:35:41* Test Item Value Reference Range Interpretation Comme nts DHEA SULFATE (test code = 4225) 241 UG/DL 99-340 [id number] 11:07:43* Test Item Value Reference Range Interpretation Comme nts TESTOSTERONE (test code = 2830) 36 NG/DL <=55 NOTE: TOTAL TESTOSTERONE ASSAY SENSITIVITY IS 12 NG/DL. TO DETERMINE NORMAL VS. SUBNORMAL TESTOSTERONE IN CHILDREN AND WOMEN, CONSIDER TESTING WITH ULTRASENSITIVE TESTOSTERONE. UNLESS OTHERWISE INDICATED, ALL TESTING PERFORMED AT [facility] [address] [place] [address] GUT CARRIER: MARY ANNE HANNA M.D. CLIA NUMBER [id number] [facility] [place] [place]. [id number] LUTEINIZING [id number] 11:07:34* Test Item Value Reference Range Interpretation Comme nts LUTEINIZING HORMONE (test code = 2776) 8.9 IU/L SEE BELOW EXPEC FLYNN VALUES FOR LH FOR FEMALES >17 YEARS MALES FEMALES >=18 YEARS 1.8-8.6 IU/L FOLLICULAR 2.4-12.6 IU/L MID-CYCLE PEAK 14.0-95.6 IU/L LUTEAL PHASE 1.0-11.4 IU/L POSTMENOPAUSAL 7.7-58.5 IU/L FOLLICLE STIM [id number] 11:07:34* Test Item Value Reference Range Interpretation Comme nts FOLLICLE STIM HORMONE (test code = 2700) 5.9 IU/L SEE BELOW EXPECTED VALUES FOR FSH FOR FEMALES >17 YEARS FOLLICULAR 3.5-12.5 IU/L MID-CYCLE PEAK 4.7-21.5 IU/L LUTEAL PHASE 1.7-7.7 IU/L POSTMENOPAUSAL 25.8-134.8 IU/L TSH, THIRD [id number] 11:07:34* Test Item Value Reference Range Interpretation Comme nts TSH, THIRD GENERATION (test code = 2821) 1.320 UIU/ML 0.400-4.100 CBC W/AUTO DIFF WITH [id number] 02:50:14* Test Item Value Reference Range Interpretation Comme nts WBC (test code = 1001) 5.9 K/UL 3.5-11.0 RBC (test code = 1002) 3.88 M/UL 3.80-5.40 HEMOGLOBIN (test code = 1003) 11.6 G/DL 11.5-15.5 HEMATOCRIT (test code = 1004) 34.5 % 34.0-45.0 MCV (test code = 1005) 88.9 fL 80.0-99.0 MCH (test code = 1006) 29.9 PG 25.0-33.0 MCHC (test code = 1007) 33.6 G/DL 31.0-36.0 RDW (test code = 1038) 12.8 % 11.5-15.0 NEUTROPHILS (test code = 1008) 56.5 % LYMPHOCYTES (test code = 1010) 35.8 % MONOCYTES (test code = 1011) 4.2 % EOSINOPHILS (test code = 1012) 2.5 % BASOPHILS (test code = 1013) 0.8 % IMMATURE GRANULOCYTES (test code = 1036) 0.2 % NUCLEATED RBCS (test code = 1065) 0.0 /100 WBC'S See_Comment [Automated messa ge] The system which generated this result transmitted reference range: 0.0. The reference range was not used to interpret this result as normal/abnormal. PLATELET COUNT (test code = 1015) 258 K/UL 130-400 ABSOLUTE NEUTROPHILS (test code = 1066) 3.33 K/UL 1.50-7.50 ABSOLUTE LYMPHOCYTES (test code = 1067) 2.11 K/UL 1.00-4.00 ABSOLUTE MONOCYTES (test code = 1068) 0.25 K/UL 0.20-1.00 ABSOLUTE EOSINOPHILS (test code = 1040) 0.15 K/UL 0.00-0.50 ABSOLUTE BASOPHILS (test code = 1069) 0.05 K/UL 0.00-0.20 ABS IMMATURE GRANULOCYTES (test code = 1020) 0.01 K/UL 0.00-0.10 ABS NUCLEATED RBCS (test code = 40982) 0.00 K/UL 0.00-0.11 CBC W/AUTO [id number] 00:00:00* Test Item Value Reference Range Interpretation Comme nts WBC (test code = 1001) 5.9 K/UL RBC (test code = 1002) 3.88 M/UL HEMOGLOBIN (test code = 1003) 11.6 G/DL HEMATOCRIT (test code = 1004) 34.5 % MCV (test code = 1005) 88.9 fL MCH (test code = 1006) 29.9 PG MCHC (test code = 1007) 33.6 G/DL RDW (test code = 1038) 12.8 % NEUTROPHILS (test code = 1008) 56.5 % LYMPHOCYTES (test code = 1010) 35.8 % MONOCYTES (test code = 1011) 4.2 % EOSINOPHILS (test code = 1012) 2.5 % BASOPHILS (test code = 1013) 0.8 % IMMATURE GRANULOCYTES (test code = 1036) 0.2 % NUCLEATED RBCS (test code = 1065) 0.0 /100WBC'S PLATELET COUNT (test code = 1015) 258 K/UL ABSOLUTE NEUTROPHILS (test c ode = 1066) 3.33 K/UL ABSOLUTE LYMPHOCYTES (test c ode = 1067) 2.11 K/UL ABSOLUTE MONOCYTES (test cod e = 1068) 0.25 K/UL ABSOLUTE EOSINOPHILS (test c ode = 1040) 0.15 K/UL ABSOLUTE BASOPHILS (test cod e = 1069) 0.05 K/UL ABS IMMATURE GRANULOCYTES (t est code = 1020) 0.01 K/UL ABS NUCLEATED RBCS (test cod e = 93717) 0.00 K/UL [facility]em[facility] ButterfieldLUTEINIZING [id number] 00:00:00* Test Item Value Reference Range Interpretation Comme nts LUTEINIZING HORMONE (test co de = 2776) 8.9 IU/L [facility]oc ButterfieldFOLLICLE STIM [id number] 00:00:00* Test Item Value Reference Range Interpretation Comme nts FOLLICLE STIM HORMONE (test code = 2700) 5.9 IU/L [facility] ButterfieldTSH, THIRD [id number] 00:00:00* Test Item Value Reference Range Interpretation Comme nts TSH, THIRD GENERATION (test code = 2821) 1.320 UIU/ML [facility] ButterfieldDHEA [id number] 00:00:00* Test Item Value Reference Range Interpretation Comme nts DHEA SULFATE (test code = 4225) 241 UG/DL [facility] [id number] 00:00:00* Test Item Value Reference Range Interpretation Comme nts TESTOSTERONE (test code = 2830) 36 NG/DL [facility] uBtterfieldCBC W/AUTO [id number] 00:00:00* Test Item Value Reference Range Interpretation Comme nts WBC (test code = 1001) 5.9 K/UL RBC (test code = 1002) 3.88 M/UL HEMOGLOBIN (test code = 1003) 11.6 G/DL HEMATOCRIT (test code = 1004) 34.5 % MCV (test code = 1005) 88.9 fL MCH (test code = 1006) 29.9 PG MCHC (test code = 1007) 33.6 G/DL RDW (test code = 1038) 12.8 % NEUTROPHILS (test code = 1008) 56.5 % LYMPHOCYTES (test code = 1010) 35.8 % MONOCYTES (test code = 1011) 4.2 % EOSINOPHILS (test code = 1012) 2.5 % BASOPHILS (test code = 1013) 0.8 % IMMATURE GRANULOCYTES (test code = 1036) 0.2 % NUCLEATED RBCS (test code = 1065) 0.0 /100WBC'S PLATELET COUNT (test code = 1015) 258 K/UL ABSOLUTE NEUTROPHILS (test c ode = 1066) 3.33 K/UL ABSOLUTE LYMPHOCYTES (test c ode = 1067) 2.11 K/UL ABSOLUTE MONOCYTES (test cod e = 1068) 0.25 K/UL ABSOLUTE EOSINOPHILS (test c ode = 1040) 0.15 K/UL ABSOLUTE BASOPHILS (test cod e = 1069) 0.05 K/UL ABS IMMATURE GRANULOCYTES (t est code = 1020) 0.01 K/UL ABS NUCLEATED RBCS (test cod e = 34647) 0.00 K/UL [facility]emoc ButterfieldLUTEINIZING [id number] 00:00:00* Test Item Value Reference Range Interpretation Comme nts LUTEINIZING HORMONE (test co de = 2776) 8.9 IU/L [facility]htemoc ButterfieldFOLLICLE STIM [id number] 00:00:00* Test Item Value Reference Range Interpretation Comme nts FOLLICLE STIM HORMONE (test code = 2700) 5.9 IU/L [facility] ButterfieldTSH, THIRD [id number] 00:00:00* Test Item Value Reference Range Interpretation Comme nts TSH, THIRD GENERATION (test code = 2821) 1.320 UIU/ML [facility] ButterfieldDHEA [id number] 00:00:00* Test Item Value Reference Range Interpretation Comme nts DHEA SULFATE (test code = 4225) 241 UG/DL [facility] [id number] 00:00:00* Test Item Value Reference Range Interpretation Comme nts TESTOSTERONE (test code = 2830) 36 NG/DL [facility]auu[facility]emoc ButterfieldCBC W/AUTO [id number] 00:00:00* Test Item Value Reference Range Interpretation Comme nts WBC (test code = 1001) 5.9 K/UL RBC (test code = 1002) 3.88 M/UL HEMOGLOBIN (test code = 1003) 11.6 G/DL HEMATOCRIT (test code = 1004) 34.5 % MCV (test code = 1005) 88.9 fL MCH (test code = 1006) 29.9 PG MCHC (test code = 1007) 33.6 G/DL RDW (test code = 1038) 12.8 % NEUTROPHILS (test code = 1008) 56.5 % LYMPHOCYTES (test code = 1010) 35.8 % MONOCYTES (test code = 1011) 4.2 % EOSINOPHILS (test code = 1012) 2.5 % BASOPHILS (test code = 1013) 0.8 % IMMATURE GRANULOCYTES (test code = 1036) 0.2 % NUCLEATED RBCS (test code = 1065) 0.0 /100WBC'S PLATELET COUNT (test code = 1015) 258 K/UL ABSOLUTE NEUTROPHILS (test c ode = 1066) 3.33 K/UL ABSOLUTE LYMPHOCYTES (test c ode = 1067) 2.11 K/UL ABSOLUTE MONOCYTES (test cod e = 1068) 0.25 K/UL ABSOLUTE EOSINOPHILS (test c ode = 1040) 0.15 K/UL ABSOLUTE BASOPHILS (test cod e = 1069) 0.05 K/UL ABS IMMATURE GRANULOCYTES (t est code = 1020) 0.01 K/UL ABS NUCLEATED RBCS (test cod e = 61080) 0.00 K/UL [facility]htemoc ButterfieldLUTEINIZING [id number] 00:00:00* Test Item Value Reference Range Interpretation Comme nts LUTEINIZING HORMONE (test co de = 2776) 8.9 IU/L Cu[facility]emoc ButterfieldFOLLICLE STIM [id number] 00:00:00* Test Item Value Reference Range Interpretation Comme nts FOLLICLE STIM HORMONE (test code = 2700) 5.9 IU/L [facility] ButterfieldTSH, THIRD [id number] 00:00:00* Test Item Value Reference Range Interpretation Comme nts TSH, THIRD GENERATION (test code = 2821) 1.320 UIU/ML Cu[facility]oc ButterfieldDHEA [id number] 00:00:00* Test Item Value Reference Range Interpretation Comme nts DHEA SULFATE (test code = 4225) 241 UG/DL [facility] [id number] 00:00:00* Test Item Value Reference Range Interpretation Comme nts TESTOSTERONE (test code = 2830) 36 NG/DL [facility] ButterfieldCBC W/AUTO [id number] 00:00:00* Test Item Value Reference Range Interpretation Comme nts WBC (test code = 1001) 5.9 K/UL RBC (test code = 1002) 3.88 M/UL HEMOGLOBIN (test code = 1003) 11.6 G/DL HEMATOCRIT (test code = 1004) 34.5 % MCV (test code = 1005) 88.9 fL MCH (test code = 1006) 29.9 PG MCHC (test code = 1007) 33.6 G/DL RDW (test code = 1038) 12.8 % NEUTROPHILS (test code = 1008) 56.5 % LYMPHOCYTES (test code = 1010) 35.8 % MONOCYTES (test code = 1011) 4.2 % EOSINOPHILS (test code = 1012) 2.5 % BASOPHILS (test code = 1013) 0.8 % IMMATURE GRANULOCYTES (test code = 1036) 0.2 % NUCLEATED RBCS (test code = 1065) 0.0 /100WBC'S PLATELET COUNT (test code = 1015) 258 K/UL ABSOLUTE NEUTROPHILS (test c ode = 1066) 3.33 K/UL ABSOLUTE LYMPHOCYTES (test c ode = 1067) 2.11 K/UL ABSOLUTE MONOCYTES (test cod e = 1068) 0.25 K/UL ABSOLUTE EOSINOPHILS (test c ode = 1040) 0.15 K/UL ABSOLUTE BASOPHILS (test cod e = 1069) 0.05 K/UL ABS IMMATURE GRANULOCYTES (t est code = 1020) 0.01 K/UL ABS NUCLEATED RBCS (test cod e = 59806) 0.00 K/UL [facility]htemoc ButterfieldLUTEINIZING [id number] 00:00:00* Test Item Value Reference Range Interpretation Comme nts LUTEINIZING HORMONE (test co de = 2776) 8.9 IU/L [facility]oc ButterfieldFOLLICLE STIM [id number] 00:00:00* Test Item Value Reference Range Interpretation Comme nts FOLLICLE STIM HORMONE (test code = 2700) 5.9 IU/L [facility] ButterfieldTSH, THIRD [id number] 00:00:00* Test Item Value Reference Range Interpretation Comme nts TSH, THIRD GENERATION (test code = 2821) 1.320 UIU/ML Cu[facility]emoc ButterfieldDHEA [id number] 00:00:00* Test Item Value Reference Range Interpretation Comme nts DHEA SULFATE (test code = 4225) 241 UG/DL [facility] [id number] 00:00:00* Test Item Value Reference Range Interpretation Comme nts TESTOSTERONE (test code = 2830) 36 NG/DL Cu[facility]emoc ButterfieldSARS-CoV-2 (COVID-19) by RT-PCR (HIGH RISK)2021-03-20 00:00:00* Test Item Value Reference Range Interpretation Comme nts SARS-CoV-2 INTERPRETATION (t est code = 59814) NEGATIVE SOURCE (test code = 30224) NOT SPECIFIED [facility]oc Alfaro [id number]-[id number] (COVID-19) by RT-PCR (HIGH RISK)2021-03-20 00:00:00* Test Item Value Reference Range Interpretation Comme nts SARS-CoV-2 INTERPRETATION (t est code = 93482) NEGATIVE SOURCE (test code = 17136) NOT SPECIFIED [facility]oc Alfaro [id number] (COVID-19) by RT-PCR (HIGH RISK)2021-03-20 00:00:00* Test Item Value Reference Range Interpretation Comme nts SARS-CoV-2 INTERPRETATION (t est code = 45453) NEGATIVE SOURCE (test code = 58721) NOT SPECIFIED [facility]oc Alfaro [id number]-[id number]-9 (COVID-19) by RT-PCR (HIGH RISK)2021-03-20 00:00:00* Test Item Value Reference Range Interpretation Comme nts SARS-CoV-2 INTERPRETATION (t est code = 90075) NEGATIVE SOURCE (test code = 48886) NOT SPECIFIED [facility] Butterfield Miranda Date/Time Note Provider Source 2025-02-19 10:18:03 Pt taken upstairs. T [facility] 2025-02-19 10:15:39 Pt arrived via PD in custody. Pt and came in for clearance. Pt c/o LLQ pain 5/10. No bleeding and "whitish vaginal discharge. VSS and Pt in NAD. T Shelley Rowe RN [facility] 2025-02-19 10:08:36 Report given to Christine in labor and delivery. Callie Reed RN [facility] 2025-02-19 10:04:00 Images from the original note were not included. EMERGENCY DEPARTMENT ENCOUNTER Formerly [facility] Patient Name: Fan Anderson Date of : 1995 29 year old Exam Room:TX3/TX3 Primary Care Physician: PATIENT DOES NOT HAVE A PCP Pre- Hospital Patient Escorted by: Law enforcement [8] Mode of Arrival: Law enforcement [6] EMS Treatment Prior to ED Arrival: ED Events Date/Time Event User Comments 02/19/25 1007 Medical Screening Begins CAYDEN BELL MD -- 02/19/25 1007 First Provider Evaluation CAYDEN BELL MD -- Chief Complaint Chief Complaint Patient presents with Abdominal Pain Pt in custody, 2 , ab 0. Denies vaginal bleeding reports llq pain x 1 hr. HPI 26 weeks with LLQ pain in police custody History provided by: Patient Abdominal Pain Pain location: LLQ Pain quality: aching and cramping Pain radiates to: Does not radiate Pain severity: Moderate Onset quality: Gradual Duration: 1 day Timing: Constant Chronicity: New Relieved by: Nothing Worsened by: Nothing Associated symptoms: no chest pain, no chills, no cough, no dysuria, no fatigue, no fever, no hematemesis, no hematochezia, no nausea, no shortness of breath and no vomiting Past Medical History / Immunizations No past medical history on file. Past Surgical History Past Surgical History: Procedure Laterality Date SECTION 2009 LAPAROSCOPIC BARIATRIC GASTRIC BYPASS 2022 Allergies No Known Allergies Social History Tobacco Use Never smoked or used smokeless tobacco. Alcohol Use Not Currently. Drug Use Not Currently. Sexual Activity Sexually active; Partners: Male; Control/Protection: None. Comments: lsi 10/05/24 Review of Systems Review of Systems Constitutional: Negative. Negative for chills, fatigue, fever and unexpected weight change. HENT: Negative. Eyes: Negative. Negative for discharge and itching. Respiratory: Negative. Negative for cough, chest tightness, shortness of breath and wheezing. Cardiovascular: Negative. Negative for chest pain and palpitations. Gastrointestinal: Positive for abdominal pain. Negative for abdominal distention, hematemesis, hematochezia, nausea and vomiting. Genitourinary: Negative. Negative for dysuria, urgency, frequency and flank pain. Musculoskeletal: Negative. Skin: Negative. Negative for color change, pallor and wound. Neurological: Negative. Negative for dizziness, syncope, light-headedness and headaches. Psychiatric/Behavioral: Negative. Negative for agitation and behavioral problems. All other systems reviewed and are negative. Endocrine: Endocrine negative Physical Exam ED Triage Vitals Weight Actual or estimated Height BP Pulse Resp Temp Temp src SpO2 Measured on Physical Exam Vitals reviewed. Constitutional: Appearance: She is well-developed. HENT: Head: Normocephalic and atraumatic. Nose: Nose normal. Eyes: Conjunctiva/sclera: Conjunctivae normal. Neck: Trachea: No tracheal deviation. Cardiovascular: Rate and Rhythm: Normal rate and regular rhythm. Heart sounds: Normal heart sounds. No murmur heard. No friction rub. Pulmonary: Effort: Pulmonary effort is normal. No respiratory distress. Breath sounds: Normal breath sounds. No stridor. No wheezing or rales. Abdominal: General: Bowel sounds are normal. There is no distension. Palpations: Abdomen is soft. Tenderness: There is no abdominal tenderness. There is no guarding or rebound. Musculoskeletal: General: Normal range of motion. Cervical back: Normal range of motion and neck supple. Skin: General: Skin is warm and dry. Neurological: Mental Status: She is alert and oriented to person, place, and time. Cranial Nerves: No cranial nerve deficit. Sensory: No sensory deficit. Psychiatric: Behavior: Behavior normal. Thought Content: Thought content normal. Judgment: Judgment normal. Labs Lab Results - No data to display Imaging No orders to display Orders and Treatments No orders of the defined types were placed in this encounter. No orders of the defined types were placed in this encounter. Procedures Procedures MDM Patient was evaluated for an emergency medical condition related to Abdominal Pain (Pt in custody, 2 , ab 0. Denies vaginal bleeding reports llq pain x 1 hr. ) Medical Decision Making Pulse Oximetry: is not hypoxic. Interpreted. Reassessment:stable Communication with sales consultant residential manager: None. Limitations to patient care and compliance: none. Plan & Summary: Fan Anderson is a 29 year old female presenting for complaint(s) listed within the note. Sent to L/D History, physical exam findings, results of visit, diagnosis, medication regimens and plan of future care have been considered. Additional MDM may be found in the ED course. Vital signs were rechecked before final disposition and determined to be expected for patient's clinical condition.. Disposition & Follow Up ED Disposition None Patient's Medications START taking these medications No medications on file CONTINUE taking these medications which have NOT CHANGED DOXYLAMINE-PYRIDOXINE, VIT B6, (DICLEGIS) 10-10 MG PER TABLET Take 2 tablets by mouth at bedtime. PROMETHAZINE 25 MG TABLET Take 1 tablet by mouth every 6 (six) hours as needed for Nausea and Vomiting (N/V). START taking Modified Medications as Prescribed No medications on file STOP taking these medications No medications on file Future Appointments In 3 days Nikia Smith, [facility] PediatricsMaynor, [facility] Narciso Bell Jr., MD Clinical Tank Inspector [facility] Emergency Department [employer] Dictation Software is used frequently and may produce errors. Promptly contact for obvious discrepancies. Cayden Bell MD 02/19/25 1012 [facility] EMERGENCY PHYSICIAN STAFF [facility] 2025-02-04 10:50:28 Noted. Fadumo Gar DRAGLINE ENGINEER [facility] 2025-02-04 10:28:28 Called patient and scheduled appointment for colpo on 02/17/25 in [place]. Pedrito Jones [facility] 2025-02-03 16:27:25 Nurse called and spoke to patient about lab results. Pt is aware that someone will be calling her to schedule colpo appointment. Pt verbalized understanding and has no further questions. Jimenez Barry DRAGLINE ENGINEER [facility] 2025-02-03 15:05:23 Attempt #2 no answer, LVM to call back clinic to speak to nurse about results. [facility] 2025-02-03 08:33:47 Called pt, no answer. Left vm. Iliana Kruse RN 02/03/25 8:33 AM [facility] 2025-02-02 16:32:54 LGSIL pap please schedule patient for colpo visit SHASHI Tamez 02/02/2025 4:33 PM [facility] 2025-01-14 11:45:33 Nurse called and spoke to patient about plan of care. Pt verbalized understanding and has no further questions. Please advise pap records received 12/2023, results [facility] +hpv, she was supposed to be seen for colpo, not sure if she had that completed, it has now been a year since that pap, I recommend that she have a repeat pap completed SHASHI Tamez 01/14/2025 11:28 AM [facility] Barry LVN [facility] 2025-01-14 11:27:20 Please advise pap records received 12/2023, results ASCUS +hpv, she was supposed to be seen for colpo, not sure if she had that completed, it has now been a year since that pap, I recommend that she have a repeat pap completed SHASHI Tamez 01/14/2025 11:28 AM [facility] [place] [facility]2025-03-24 16:14:45 Called pt, advised medication was sent on 10/06/2024. Verbalized understanding. Iliana Kruse RN 10/18/24 4:15 [facility]25 Pt requesting call back states she has been having vomiting and nausea and would like to know what she can take or if she can have rx sent. [phone] (home) [place] [id number] 00:00:00 [facility]2024-06-03 00:00:00 [facility]2024-05-30 00:00:00 [facility]
--- NOTE | 2025-04-18 20:25 | EDPHYS ---
Physician Documentation [facility] Name: Silvia Peterson Age: 30 yrs Sex: Female : 1995 Arrival Date: 04/18/2025 Time: 19:46 Bed 1 Private MD: ED Physician Sameer Grey HPI: 04/18 20:24 This 30 yrs old Female presents to ER via Ambulatory with complaints of tt7 Abdominal Pain. 20:24 Abdominal pain started yesterday. She reports as an intermittent cramping sensation tt7 primarily in her lower left abdomen. Some mild associated nausea. Yesterday she noticed some discharge of thin clear fluid in her underwear. No vaginal bleeding. She is G2, P1 at 34 weeks gestation. 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 - Infectious Disease History:: Denies. - Social history:: Smoking status: Patient denies any tobacco usage or history of. Patient/guardian denies using alcohol, street drugs, IV drugs. ROS: 20:25 Constitutional: negative for fever. Cardiovascular: negative for chest pain. tt7 Respiratory: negative for shortness of breath. MS/Extremity: negative for injury and deformity. Skin: negative for rash. Neuro: negative for focal weakness. 20:25 Abdomen/GI: Positive for nausea, abdominal cramps, Negative for vomiting, 20:25 : Positive for vaginal discharge, Negative for vaginal bleeding, Exam: 04/19 05:31 Constitutional: vital signs reviewed, well appearing. Head/Face: normocephalic, tt7 atraumatic. Eyes: no conjunctival injection, anicteric sclerae. ENT: mucus membranes moist. Neck: trachea midline, no JVD, no meningismus. Chest/axilla: normal chest wall appearance and motion, nontender, no crepitus. Cardiovascular: regular rate and rhythm, no murmurs, no rubs, no lower extremity edema. Respiratory: normal respiratory effort, no accessory muscle use, lungs CTAB. Abdomen/GI: soft, gravid, nondistended, mild LLQ tenderness, no guarding or rebound, negative Bello's sign, no McBurney point tenderness. Back: normal ROM. Skin: warm, dry, intact, normal turgor, normal color, no rash. MS/ Extremity: normal ROM of extremities, no gross deformities. Neuro: alert and oriented with appropriate mental status, normal speech, follows commands, no focal neurologic deficits. Psych: appropriate mood and affect. Vital Signs: 04/18 20:00 BP 126 / 77; Pulse 100; Resp 20; Temp 98.3; Pulse Ox 100% ; Weight 126.1 kg; Height 5 jj7 ft. 5 in. ; Pain 7/10; 21:10 BP 126 / 74; Pulse 106; Resp 19; Pulse Ox 97% on R/A; hm5 20:00 Body Mass Index 46.26 (126.10 kg, 165.1 cm) jj7 20:00 Pain Scale: Adult jj7 MDM: 19:58 Medical Screening Exam initiated dr5 20:26 Differential Diagnosis labor, premature rupture of membranes, placental tt7 abruption, placenta previa, abdominal pain in , nonspecific abdominal pain, pancreatitis, urinary tract infection. Data reviewed: vital signs, nurses notes. ED course: Patient having abdominal cramping and some discharge of thin clear vaginal fluid, symptoms started yesterday, the patient's vital signs are stable, workup was initiated to include complete blood count, comprehensive metabolic panel, lipase, urinalysis, and obstetric ultrasound, I do not have the resources such as toco monitoring or heart monitoring or nitrazine/AmniSure at my facility to completely assess this patient so we'll initiate transfer to a facility that has specialty obstetric care. 20:40 ED course: I spoke with flame brazing machine operator Dr. Ghotra at [facility] regarding the patient's tt7 clinical presentation, vital signs, and emergency department workup, she accepts the patient for transfer. 04/18 20:16 Order name: CBC with Diff; Complete Time: 05:30 tt7 04/18 20:16 Order name: CMP; Complete Time: 05:30 tt7 04/18 20:16 Order name: Lipase; Complete Time: 05:30 tt7 04/18 20:16 Order name: UA Rfx Tony Cult if indicated; Complete Time: 05:30 tt7 04/18 20:16 Order name: OB Complete US tt7 04/18 20:20 Order name: OB Limited; Complete Time: 05:30 EDMS 04/18 20:16 Order name: IV Saline Lock; Complete Time: 20:55 tt7 04/18 20:16 Order name: Labs collected and sent; Complete Time: 20:55 tt7 04/18 20:17 Order name: Pelvic Exam Setup; Complete Time: 21:02 tt7 Administered Medications: 20:55 Drug: Acetaminophen PO 1000 mg PO once Route: PO; 5 21:11 Follow up: Response: No adverse reaction 5 Disposition: 04/19 05:33 Co-signature as Attending Physician, Sameer Grey DO. tt7 Disposition Summary: 04/18/25 20:24 Transfer Ordered Notes: [facility] Reason: Specialty tt7 Condition: Stable tt7 Problem: new tt7 Symptoms: are unchanged tt7 Accepting Physician: (04/18/25 21:11) 5 Diagnosis - 34 weeks gestation of tt7 - ABDOMINAL PAIN IN tt7 Forms: - Medication Reconciliation Form tt7 - SBAR form tt7 Signatures: Dispatcher [employer] Leticia Parry RN RN jj7 Tenzin Duvall, WEIGHT REDUCING TECHNICIAN-C WEIGHT REDUCING TECHNICIAN-Cdr5 Shelley Rivera RN RN hm5 Sameer Grey DO DO tt7 Corrections: (The following items were deleted from the chart) 04/18 21:11 20:24 tt7 5
--- NOTE | 2025-04-18 20:25 | ER ---
Nurse's Notes [facility] Name: Silvia Peterson Age: 30 yrs Sex: Female : 1995 Arrival Date: 04/18/2025 Time: 19:46 Bed 1 Private MD: Diagnosis: 34 weeks gestation of ;ABDOMINAL PAIN IN Presentation: 04/18 20:00 Chief complaint: Patient states: 34 WEEKS AND HAVING ABD PAIN THAT COMES AND jj7 GOES THAT STARTED YESTERDAY. SHE ALSO STATES SHE IS HAVING SOME CLEAR FLUID LEAKAGE STARTED YESTERDAY WELL. Coronavirus screen: At this time, the client does not indicate any symptoms associated with coronavirus-19. Ebola Screen: No symptoms or risks identified at this time. Initial Sepsis Screen: Does the patient meet any 2 criteria? HR > 90 bpm. Yes Does the patient have a suspected source of infection? No. Patient's initial sepsis screen is negative. Risk Assessment: Do you want to hurt yourself or someone else? Patient reports no desire to harm self or others. Onset of symptoms was April 17, 2025. 20:00 Method Of Arrival: Ambulatory j7 20:00 Acuity: ANALIA 3 jj7 Triage Assessment: 20:00 General: Appears in no apparent distress. comfortable, Behavior is calm, cooperative, jj7 appropriate for age. Pain: Complains of pain in abdomen. GI: Reports lower abdominal pain, cramping. : Reports discharge, watery, since YESTERDAY. 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 - Infectious Disease History:: Denies. - Social history:: Smoking status: Patient denies any tobacco usage or history of. Patient/guardian denies using alcohol, street drugs, IV drugs. Screenin:08 [facility] ED Fall Risk Assessment (Adult) History of falling in the last 3 months, 5 including since admission No falls in past 3 months (0 pts) Confusion or Disorientation No (0 pts) Intoxicated or Sedated No (0 pts) Impaired Gait No (0 pts) Mobility Assist Device Used No (0 pt) Altered Elimination No (0 pt) Score/Fall Risk Level 0 - 2 = Low Risk. Abuse screen: Denies threats or abuse. Denies injuries from another. Nutritional screening: No deficits noted. Tuberculosis screening: No symptoms or risk factors identified. Assessment: 20:58 General: Appears in no apparent distress. uncomfortable, well groomed, well developed, hm5 well nourished. Pain: Complains of pain in LLQ. Neuro: No deficits noted. Cardiovascular: No deficits noted. Respiratory: No deficits noted. GI: No deficits noted. Abd is soft Abd is non tender Reports lower abdominal pain, since LUQ-LLQ pain and "fluid leakage". Vital Signs: 20:00 BP 126 / 77; Pulse 100; Resp 20; Temp 98.3; Pulse Ox 100% ; Weight 126.1 kg; Height 5 jj7 ft. 5 in. ; Pain 7/10; 21:10 BP 126 / 74; Pulse 106; Resp 19; Pulse Ox 97% on R/A; hm5 20:00 Body Mass Index 46.26 (126.10 kg, 165.1 cm) jj7 20:00 Pain Scale: Adult jj7 ED Course: 19:50 Patient arrived in ED. gm2 19:57 Tenzin Duvall FNP-C is PHCP. dr5 19:57 Sameer Grey DO is Attending Physician. dr5 20:00 Arm band placed on right wrist. Patient placed in an exam room, on a stretcher. jj7 20:08 Sameer Grey DO is Attending Physician. tt7 20:15 Shelley Rivera, RN is Primary Nurse. hm5 20:23 Triage completed. jj7 20:29 Initiated transfer with Thais at [facility]. rv1 20:35 Doc to Doc with [facility] OB. rv1 20:[address] Ghotra to [facility] L\\T\\D Triage. rv1 20:50 OB Limited In Process Unspecified. EDMS 20:59 [facility] to transfer. rv1 21:08 No provider procedures requiring assistance completed. Inserted saline lock: 20 gauge hm5 in left antecubital area, using aseptic technique. 21:10 Patient transferred, IV remains in place. intact. [facility] Administered Medications: 20:55 Drug: Acetaminophen PO 1000 mg PO once Route: PO; [facility] 21:11 Follow up: Response: No adverse reaction [facility] Medication: 21:09 VIS not applicable for this client. [facility] Outcome: 20:24 ER care complete, transfer ordered by tt7 21:09 Transferred by ground EMS to other acute care facility: [facility]. [facility] 21: Condition: good 21: Instructed on the need for transfer, Demonstrated understanding of instructions, report called to [facility] rn by ankit montoya 21:11 Patient left the ED. [facility] Signatures: Dispatcher [employer] EDLeticia Wang RN RN rajatjAubrie Burt rv1 Norah Verma gm2 Tenzin Duvall, THREADER-C THREADER-Cdr5 Shelley Rivera RN RN [facility] Sameer Grey DO DO tt7 Corrections: (The following items were deleted from the chart) 21: 20:30 Doc to Doc with [facility] OB rv1 rv1
[2025-04-18] MEDS ORDERED: ACETAMINOPHEN 500 MG TAB ONE (20:40)
--- NOTE | 2025-04-18 21:06 | RAD REPORT ---
EXAMINATION: OB Limited COMPARISON: None. HISTORY: [facility] MAIN ABD CRAMPING, Bed Name: 1 TECHNIQUE: Real-time ultrasound was performed through the pelvis through a transabdominal approach. FINDINGS: Markedly poor penetration limits evaluation. There is a single living intrauterine . Fetus in cephalic presentation. Placenta is forming posteriorly. Subjectively, amniotic fluid is of normal volume. Cervical os is closed. Adnexal structures were not visualized.. There is no free fluid in the cul-de-sac. Measurements and Calculations: Femur length 64.9 mm, consistent with a sonographic age of 33 weeks, 3 days. The patient's LMP dates are not stated. heart rate: 133 BPM. IMPRESSION: Single living intrauterine , with a composite sonographic age of 33 weeks, 3 days, although evaluation is limited by poor penetration. Estimated due date by ultrasound 06/03/2025.
[2025-04-18 21:15] VITALS: TEMP 98.3
[2025-04-18 21:17] VITALS: BP 126/74; O2SAT 97
[2025-04-18 21:21] LABS: Absolute Lymphocytes (CBC) 2.0 K/uL (0.7-4.9); Hematocrit 31.9 % (36.0-45.0); Hemoglobin 10.4 g/dL (12.0-15.0); MCH 25.7 pg (27.0-35.0); MCHC 32.7 g/dL (32.0-36.0); MCV 78.7 fL (80-100); MPV 9.0 fL (7.6-11.3); Nucleated RBC Absolute Count 0.0 (0-0); Nucleated Red Blood Cells % 0.0 % (0-0); RBC Red Blood Cell Count 4.06 M/uL (3.86-4.86); White Blood Count 7.10 thou/uL (4.3-10.9)
[2025-04-18 21:24] LABS: Urine Culture Reflex Order REFLEXED; Urine Microscopic Reflex YN ORDER UMIC
[2025-04-18 21:39] LABS: ALT/SGPT 20 U/L (13-56); Albumin 2.3 g/dL (3.4-5.0); Albumin/Globulin Ratio 0.5 (1.1-1.8); Alkaline Phosphatase 141 U/L (45-117); Anion Gap 9.8 mEq/L (5.0-15.0); BUN Blood Urea Nitrogen 8 mg/dL (7-18); Globulin 4.4 g/dL (2.3-3.5); Glucose Level 85 mg/dL (74-106); Lipase 32 U/L (13-75); Potassium 3.8 mEq/L (3.5-5.1)
[2025-04-18 21:41] LABS: AST/SGOT < 10 U/L (15-37)
== END 2025-04-18 21:11 | disposition short-term general hospital (02) ==
LOC: ER 19:46
DX: O26.893 Other specified pregnancy related conditions, third trimester (principal); Z3A.34 34 weeks gestation of pregnancy
CPT/HCPCS: 36415; 76815; 80053; 81001; 83690; 85025; 87086; 87088; 99285